=== PATIENT | male | born 2000 | race Caucasian/White ===

== ENCOUNTER 2020-03-27 08:27 | Outpatient (REF) | payer OTHER, SELFPAY | END 2020-03-27 08:28 | disposition home or self-care (01) | LOC: HO.LAB 08:27 | PROVIDERS: Visit Provider Internal Medicine | DX: Z20.828 Contact with and (suspected) exposure to other viral communicable diseases (principal) | CPT/HCPCS: C9803; U0003 ==

== ENCOUNTER 2024-05-02 19:53 | Emergency (ER) | payer OTHER, SELFPAY ==
--- NOTE | 2024-05-02 19:58 | ED_ITS ---
HPI - General Adult General Chief complaint: Skin/Abscess/Foreign Body Stated complaint: Rash on chest, inner thigh and face Time Seen by Provider: 05/02/24 22:06 Source: patient, RN notes reviewed and old records reviewed Mode of arrival: ambulatory Limitations: no limitations History of Present Illness ED Provider: Valery AGRAWAL narrative: 24-year-old male presents for evaluation of a rash mostly to his inner thighs. He 1st noticed the rash to the back of his hands yesterday. He has not had any itching, pain. When he took a shower today he noticed redness to his inner thighs mostly in the right, abdomen and back. None of the areas are itchy or painful. He has not use any new soaps, lotions, detergents. He denies any history of similar rashes. He has not been swimming recently. He reports he had a fever of 101 measure with a tympanic thermometer a few hours prior to arrival. He denies any sore throat, cough, shortness of breath. Denies any abdominal pain, nausea vomiting He is not on any medications Related Data Previous Rx's ?Medication ?Instructions ?Recorded doxycycline hyclate 100 mg capsule 100 mg PO BID #14 caps 05/02/24 prednisone 20 mg tablet 40 mg (2 x 20 mg) PO DAILY #10 tabs 05/02/24 Allergies Allergy/AdvReac Type Severity Reaction Status Date / Time amoxicillin [From Augmentin] Allergy Unknown Verified 05/02/24 20:01 cephalexin [From Keflex] Allergy Unknown Verified 05/02/24 20:01 clavulanic acid Allergy Unknown Verified 05/02/24 20:01 [From Augmentin] Penicillins Allergy Anaphylaxis Verified 05/02/24 20:01 Review of Systems 2 Constitutional: Constitutional: Reports body ache(s), Denies chills, Reports fever(s) and Denies headache(s) Eyes: Eyes: Denies blurry vision ENT: Denies headache(s) and Denies sore throat Cardiovascular: Cardiovascular: Denies chest pain and Denies dyspnea Respiratory: Respiratory: Denies dyspnea Gastrointestinal: Gastrointestinal: Denies abdominal pain, Denies nausea and Denies vomiting Musculoskeletal: Musculoskeletal: Denies back pain Integumentary/Breasts: Skin/Breast: Reports erythema, Reports rash, Denies skin pain, Denies sores and Denies wounds Neurologic: Denies headache(s) PMFSH Social History Social History Advance Directives: No Advance Directives Information Provided: No Physical Exam ED Vital Signs: Vital Signs - 24 hr 05/02/24 19:59 05/02/24 22:59 Temperature 98.8 F 98.8 F Pulse Rate 102 H 102 H Respiratory Rate 18 18 Blood Pressure 142/93 H 142/93 H Pulse Oximetry 98 98 Oxygen Delivery Method Room Air Room Air BMI result Body Mass Index 29.5 Const General: healthy appearing, comfortable, no acute distress, alert and awake Nutritional Appearance: well nourished Orientation/consciousness: patient oriented x3 HENMT Head: Yes normocephalic and Yes atraumatic Eyes Eyelids: Yes eyelids normal Conjunctivae: conjunctivae normal Sclerae: sclerae normal Corneas: corneas normal Pupils: Equal, round and reactive pupils present EOM: EOMs intact bilaterally Neck Neck: Yes full ROM Resp Effort & Inspection: normal respiratory effort, able to speak in complete sentences and not labored Skin Other: Patient has beefy red erythema that is with increased warmth mostly to the right inner thigh. It does involve the scrotum marginally, there is no areas of fluctuance or abscess. This does not extend on any to the perineum or towards the rectum. It does not extend down towards the knee. It does not extend above the waist band. There is faint erythema to the upper back. No macular papillary lesions, General skin exam: elasticity normal Neuro General: patient oriented x3 Cranial nerves: Yes Equal, round and reactive pupils present and Yes Bilaterally intact EOM present Cognition (Neuro): normal cognition Extrem Other: Moving all extremities well without any obvious deformities Course Course Course Narrative: This is a rapid medical exam performed by Joe Montenegro NP: Additional HPI, ROS, PE not included below will be deferred to primary provider. Patient is a 24-year-old male presenting to the ED with complaint of rash to legs, torso since yesterday, also fever of 101 today. Very slightly pruritic. No new medications. No sore throat, shortness of breath or difficulty breathing. Plan: strep and viral serology, labs Medications Administered Discontinued Medications Generic Name Dose Route Start Last Admin Trade Name Freq PRN Reason Stop Dose Admin Doxycycline Monohydrate 100 mg 05/02/24 22:54 05/02/24 22:58 Doxycycline Monohydrate 100 Mg Capsule PO 05/02/24 22:55 100 mg ONCE ONE Administration Prednisone 40 mg 05/02/24 22:47 05/02/24 22:58 Prednisone 20 Mg Tablet PO 05/02/24 22:48 40 mg ONCE ONE Administration Medical Decision Making Medical Decision Making [facility] Narrative: 24-year-old male presents for evaluation of a rash. He reports a fever today, he denies any pain or itching. It was difficult to categorize this rash as infectious/inflammatory/allergic. It does not fit classically into either of the categories. Given that he had a fever yesterday we will treat with doxycycline. His rash is not painful, so it is not classic cellulitis. He has no viral symptoms or respiratory symptoms to suggest a viral exanthem. I will add on prednisone to help in case he was any inflammatory component. The patient has no urticaria, no itching to suggest allergic reaction. There was no evidence of abscess, the patient is not septic. Differential Diagnosis Differential Diagnoses: The differential diagnosis associated with the presentation includes Cellulitis Erysipelas Dermatitis Urticaria Eczema Viral exanthem Lab Data 05/02/24 20:14 05/02/24 20:14 Labs: Lab Results 05/02/24 Range/Units 20:14 WBC 12.2 H (4.8-10.8) X10*3/uL RBC 4.88 (4.60-5.80) X10*6/uL Hgb 14.5 (14.0-18.0) g/dl Hct 40.8 L (42.0-52.0) % MCV 83.6 (80.0-98.0) fL MCH 29.7 (27.0-33.0) pg MCHC 35.5 (31.0-36.0) g/dl RDW 12.3 (11.0-16.0) % Plt Count 181 (160-400) X10*3/uL MPV 12.0 (9.4-12.4) fL Immature Gran % (Auto) 0.3 (0.0-0.4) % Neut % (Auto) 72.5 (45-73) % Lymph % (Auto) 10.3 L (20-40) % Sully % (Auto) 9.5 (2-11) % Eos % (Auto) 7.2 H (0-4) % Baso % (Auto) 0.2 (0-2) % Lymph # (Auto) 1.3 (1.2-4.9) X10*3/uL Sully # (Auto) 1.2 (0.1-1.2) X10*3/uL Eos # (Auto) 0.9 H (0.0-0.4) X10*3/uL Baso # (Auto) 0.0 (0.0-0.2) X10*3/uL Abs Immat Gran (auto) 0.04 H (0.00-0.03) X10*3/uL Absolute Neuts (auto) 8.8 H (2.0-8.3) x10*3/uL Absolute Nucleated RBC 0.000 (0.0-0.012) X10*3/uL Nucleated RBC % (auto) 0.0 (0.0-0.2) /100WBC Sodium 140 (135-145) mmol/L Potassium 3.8 (3.3-5.1) mmol/L Chloride 102 (96-108) mmol/L Carbon Dioxide 26 (22-29) mmol/L Anion Gap 16 (12-20) BUN 9 (9-16) mg/dL Creatinine 0.93 (0.5-1.4) mg/dL Estim Creat Clear Calc 133.9 Estimated GFR > 60 Random Glucose 108 (60-115) mg/dL Calcium 8.9 (8.4-10.2) mg/dL Total Bilirubin 1.6 H (0.0-1.0) mg/dL AST 121 H (5-37) U/L ALT 194 H (0-40) U/L Alkaline Phosphatase 181 H (39-117) U/L Total Protein 7.2 (6.5-8.0) g/dL Albumin 4.1 (3.5-5.0) g/dL Influenza Type A (PCR) NEGATIVE (Negative) Influenza Type B (PCR) NEGATIVE (Negative) RSV RNA Qual (PCR) NEGATIVE (Negative) SARS-CoV-2 RNA (RT-PCR) NEGATIVE (Negative) S. pyogenes GrpA TOMASZ Negative (Negative) Discharge Plan Discharge Clinical Impression: Acute dermatitis Patient Disposition: Home, Self-Care Instructions: Dermatitis (ED) Additional Instructions: It is not clear with the cause of your rash is. I feel it is less likely to be an infection, however given that you had a fever earlier today and it was in your groin I recommend taking doxycycline Take prednisone 40 mg daily for the next 5 days as well Follow-up with your primary doctor return for new or worsening symptoms Prescriptions: New prednisone 20 mg tablet 40 mg PO DAILY Qty: 10 0RF doxycycline hyclate 100 mg capsule 100 mg PO BID Qty: 14 0RF Interventions: ED Discharge Assessment Last Done: 05/02/24 22:59 Discharge Date/Time: 05/02/24 23:00 Print Language: Icelandic
[2024-05-02 19:59] VITALS: BP 142/93; PULSE 102; RESP 18; TEMP 37.1; O2SAT 98; BMI 29.5
[2024-05-02 20:22] LABS: MANUAL DIFF FLAG NO
[2024-05-02 20:33] LABS: IDNOW Serial# 58CA691E; Strep A Nucleic Acid Negative (Negative)
[2024-05-02 20:34] LABS: Basophils Percent Auto 0.2 % (0-2); Eosinophils Absolute Auto 0.9 X10*3/uL (0.0-0.4); Eosinophils Percent Auto 7.2 % (0-4); Hematocrit 40.8 % (42.0-52.0); Hemoglobin 14.5 g/dl (14.0-18.0); Imm Gran Abs Auto 0.04 X10*3/uL (0.00-0.03); Imm Gran Pct Auto 0.3 % (0.0-0.4); Lymphocytes Absolute Auto 1.3 X10*3/uL (1.2-4.9); Lymphocytes Percent Auto 10.3 % (20-40); Mean Corpuscular HGB Conc 35.5 g/dl (31.0-36.0); Mean Corpuscular Hemoglobin 29.7 pg (27.0-33.0); Mean Corpuscular Volume 83.6 fL (80.0-98.0); Monocytes Absolute Auto 1.2 X10*3/uL (0.1-1.2); Monocytes Percent Auto 9.5 % (2-11); Neutrophils Absolute Auto 8.8 x10*3/uL (2.0-8.3); Neutrophils Percent Auto 72.5 % (45-73); Platelet Count 181 X10*3/uL (160-400); Red Blood Count 4.88 X10*6/uL (4.60-5.80); Red Cell Distribution Width 12.3 % (11.0-16.0); White Blood Count 12.2 X10*3/uL (4.8-10.8)
[2024-05-02 20:39] LABS: Alanine Aminotransferase 194 U/L (0-40); Albumin Level 4.1 g/dL (3.5-5.0); Alkaline Phosphatase 181 U/L (39-117); Anion Gap 16 (12-20); Aspartate Amino Transferase 121 U/L (5-37); Bilirubin Total 1.6 mg/dL (0.0-1.0); Blood Urea Nitrogen 9 mg/dL (9-16); Calcium 8.9 mg/dL (8.4-10.2); Carbon Dioxide 26 mmol/L (22-29); Chloride 102 mmol/L (96-108); Creatinine Clr Calc Pharmacy 133.9; Estimated Glomerular Filt Rate > 60; Glucose Random 108 mg/dL (60-115); Potassium 3.8 mmol/L (3.3-5.1); Sodium 140 mmol/L (135-145); Total Protein 7.2 g/dL (6.5-8.0)
[2024-05-02 21:01] LABS: Influenza A PCR NEGATIVE (Negative); Influenza B PCR NEGATIVE (Negative); Resp Syncy Virus RNA Qual PCR NEGATIVE (Negative); SARS COV2 PCR INHOUSE NEGATIVE (Negative)
[2024-05-02] MEDS: Doxycycline Monohydrate 100 MG CAPSULE PO (22:58)
[2024-05-02] MEDS: predniSONE 20 MG TABLET 40 MG PO (22:58)
[2024-05-02 22:59] VITALS: BP 142/93; PULSE 102; RESP 18; TEMP 37.1; O2SAT 98
== END 2024-05-02 23:00 | disposition home or self-care (01) ==
PROVIDERS: Registered Nurse Emergency; Emergency Provider Emergency Medicine
DX: L30.9 Dermatitis, unspecified (principal); Z03.818 Encounter for observation for suspected exposure to other biological agents ruled out; Z79.899 Other long term (current) drug therapy
CPT/HCPCS: 0241U; 80053; 85025; 87651; 99283